=== PATIENT | female | born 1985 | race American Indian/Alaskan Native ===

== ENCOUNTER 2019-05-20 18:12 | Emergency (ER) | payer BC ==
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
--- NOTE | 2019-05-20 21:53 | Vascular Lab Report ---
DUPLEX DOPPLER LOWER EXTREMITY VEINS, RIGHT INDICATION: right leg pain. TECHNIQUE: Duplex doppler imaging was performed through the veins of the right lower extremity using venous comp ression and other maneuvers. COMPARISON: No relevant prior imaging study available. FINDINGS: Right Common femoral vein: Negative. Right Superficial femoral vein: Negative. Right Popliteal vein: Negative. Right Calf veins: Negative. Additional findings: A few shoddy lymph nodes are noted.. IMPRESSION: 1. No sonographic evidence for DVT in the right lower extremity. Signer Name: Eliseo Joy MD Signed: 05/20/2019 9:49 PM Workstation Name: [id number]
[2019-05-20 22:39] VITALS: BP 115/63
== END 2019-05-20 22:38 | disposition home or self-care (01) ==
LOC: ED 18:12
DX: S86.911A Strain of unspecified muscle(s) and tendon(s) at lower leg level, right leg, initial encounter (principal); E11.9 Type 2 diabetes mellitus without complications; J45.909 Unspecified asthma, uncomplicated; F17.200 Nicotine dependence, unspecified, uncomplicated; F12.10 Cannabis abuse, uncomplicated; X58.XXXA Exposure to other specified factors, initial encounter; Y93.89 Activity, other specified; Y92.89 Other specified places as the place of occurrence of the external cause; Y99.8 Other external cause status

== ENCOUNTER 2019-09-30 15:46 | Emergency (ER) | payer SELFPAY ==
--- NOTE | 2019-09-30 17:58 | Event Note ---
ED Screening Note Date of service: 09/30/19 Time: 17:55 ED Screening Note: 34 y o female with PMH of DVT on right presents with right calf pain x 5 days states radiating upwards This initial assessment/diagnostic orders/clinical plan/treatment(s) is/are subject to change based on patients health status, clinical progression and re- assessment by fellow clinical providers in the ED. Further treatment and workup at subsequent clinical providers discretion. Patient/guardian urged not to elope from the ED as their condition may be serious if not clinically assessed and managed. Initial orders include: doppler US
[2019-09-30 18:02] VITALS: BP 135/79
--- NOTE | 2019-09-30 21:01 | Vascular Lab Report ---
DUPLEX DOPPLER LOWER EXTREMITY VEINS, RIGHT INDICATION: pain. TECHNIQUE: Duplex doppler imaging was performed through the veins of the right lower extremity using venous comp ression and other maneuvers. COMPARISON: None available. FINDINGS: Common Femoral vein: Negative. Superficial Femoral vein: Negative. Popliteal vein: Negative. Calf veins: Negative. Additional findings: None. IMPRESSION: 1. No sonographic evidence for DVT in the right lower extremity. Signer Name: Dion Razo MD Signed: 09/30/2019 8:57 PM Workstation Name: [email or web address]
[2019-09-30] MEDS ORDERED: CYCLOBENZAPRINE 10 MG TAB PO ONE (21:31)
[2019-09-30] MEDS ORDERED: IBUPROFEN 800 MG TAB PO ONE (21:31)
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
== END 2019-09-30 22:54 | disposition home or self-care (01) ==
LOC: ED 15:46
DX: S86.911A Strain of unspecified muscle(s) and tendon(s) at lower leg level, right leg, initial encounter (principal); J45.909 Unspecified asthma, uncomplicated; E11.9 Type 2 diabetes mellitus without complications; F17.200 Nicotine dependence, unspecified, uncomplicated; Z79.899 Other long term (current) drug therapy; X58.XXXA Exposure to other specified factors, initial encounter; Y93.89 Activity, other specified; Y92.89 Other specified places as the place of occurrence of the external cause; Y99.8 Other external cause status